=== PATIENT | female | born 1975 | race Caucasian/White ===

== ENCOUNTER 2019-02-05 21:52 | Emergency (ER) | payer SELFPAY ==
[2019-02-05 21:53] VITALS: BP 157/115; PULSE 103; RESP 18; TEMP 36.2; O2SAT 97; BMI 43.0
--- NOTE | 2019-02-05 22:16 | US_ITS ---
HISTORY: RT POSTERIOR CALF PAIN WHEN FLEXING .....GETTING WORSE EXAMINATION: US Venous Duplex LE Unilat / Limited: TECHNIQUE: Blanton scale, pulse wave, and color flow Doppler imaging was performed of the lower extremity venous system. The right greater saphenous, common femoral, femoral, and popliteal veins were interrogated. COMPARISON: None FINDINGS: There is normal compression, augmentation, and signal throughout the visualized deep lower extremity veins. No mass or fluid collection. US/Venous Duplex Imag/Limited/Uni IMPRESSION: No sonographic evidence of deep venous thrombosis. at 2252 Reported and signed by: Andrew Roldan MD Electronically Signed: Andrew Roldan, at 22:51 EDT Tel , Service support ,
--- NOTE | 2019-02-05 22:44 | ED.VISSUMM ---
- ER Visit Summary Date of Service: 02/05/19 Chief Complaint: Calf pain History of Present Illness: The patient is a 43 female who presents with right medial calf pain. Patient states that began this morning is gotten progressively worse. She states that she is on oral contraceptive and is very afraid she has a blood clot. She notes no recent surgery, no recent immobilization, no paralysis, no active cancers, no history of prior DVT, no unilateral leg swelling. Physical Examination: Afebrile vital signs stable Gen: Well-nourished well-developed Head: Normocephalic atraumatic Eyes: Perrl EOMI ENT: TMs clear no rhinorrhea moist mucous membranes Neck: Supple no lymphadenopathy no JVD nontender CVS: Regular rate rhythm no murmurs normal S1-S2 Respiratory: No distress clear to auscultation bilaterally chest nontender Abdomen: Soft nontender nondistended normal bowel sounds no masses Back: Nontender Extremity: Tender to palpation along the medial calf musculature. There is no swelling there are no cords. Skin: Normal color no rash Neuro: alert orientated ?3 CN II-XII intact normal strength sensation reflexes gait cerebellar Psych: Normal affect normal mood Test Results: Duplex ultrasound was negative Emergency Department Course and Treatment: I explained to the patient that her Wells score for DVT was 0. She is still uncomfortable with discharge to be obtained the ultrasound which was negative. Patient will now be discharged home. Impression: 1. Right calf muscle strain This note was generated with [employer] dictation software. It may contain incorrect words, spelling, and punctuation that were not noted in review of the chart prior to signing ED Disposition - Plan for ED Patient: Disposition: Home or Assisted Living Instructions: ED Strain Muscle Ext Additional Instructions: Return if worsening or concerns Heat to the area Gentle stretching
[2019-02-05 22:58] VITALS: BP 148/68; PULSE 98; RESP 18; O2SAT 96
== END 2019-02-05 22:59 | disposition home or self-care (01) ==
PROVIDERS: Emergency Provider Emergency Medicine
DX: S86.811A Strain of other muscle(s) and tendon(s) at lower leg level, right leg, initial encounter (principal); X58.XXXA Exposure to other specified factors, initial encounter; Y93.89 Activity, other specified; Y92.89 Other specified places as the place of occurrence of the external cause; Y99.8 Other external cause status
CPT/HCPCS: 93971; 99282

== ENCOUNTER → 2021-07-21 13:47 | Outpatient (CLI) | payer SELFPAY ==
--- NOTE | 2021-07-21 13:55 | VDLE_ITS ---
Reason For Study: r/o DVT Procedure LEFT This is a venous duplex using B-mode, color GSV is normal. flow and spectral Doppler. CFV is compressible, spontaneous, phasic, Exam performed in department. competent, and demonstrates normal A preliminary report was called and/or faxed augmentation. to Dr. Bucio. FV is compressible, spontaneous, phasic, competent and demonstrates normal augmentation. POP V is compressible, spontaneous, phasic, competent and demonstrates normal augmentation. T/P Trunk is compressible. PTV is compressible. LT PerV is compressible. VL/Venous Duplex US, Unilateral Interpretation Summary Deep veins of the left lower extremity are patent and compressible segmentally. There is no evidence of left lower extremity deep vein thrombosis. Valvular competence appears intac t within the proximal deep venous system on the left . The left great saphenous vein appears patent a nd compressible segmentally. Ordering Physician: Laurent Bucio Referring Physician: Laurent Bucio Performed By: Christie Monique, HOA, RVT
== END ==
PROVIDERS: PCP Physician Assistant; Referring Provider Physician Assistant; Visit Provider Physician Assistant
DX: M79.662 Pain in left lower leg (principal)
CPT/HCPCS: 93971